=== PATIENT | male | born 1990 | race Caucasian/White ===

== ENCOUNTER 2020-10-28 10:58 | Emergency (ER) | payer BC ==
[~2020-10-28] VITALS: Ht 188 cm; Wt 83.5 kg
[2020-10-28 10:58] VITALS: BP_SYST 155
[2020-10-28] MEDS ORDERED: KETOROLAC TROMETHAMINE 60 MG/2 ML VIAL IM ONE (11:15)
[2020-10-28] MEDS ORDERED: HYDROcodone/ACETAMIN 10-325 MG TAB PO ONE (11:15)
[2020-10-28] MEDS ORDERED: IBUP-1971 PO (12:50)
[2020-10-28] MEDS ORDERED: HYDR-3917 PO (12:50)
[2020-10-28 13:28] VITALS: BP_SYST 140
== END 2020-10-28 13:25 | disposition home or self-care (01) ==
LOC: SED 10:58
DX: M54.5 Low back pain (principal)
CPT/HCPCS: 72100; 96372; 99283; J1885